=== PATIENT | female | born 1965 | race Caucasian/White ===

== ENCOUNTER 2021-07-06 15:00 | Outpatient (REF) | payer OTHER, SELFPAY ==
[2021-07-06 18:43] LABS: MANUAL DIFF FLAG NO
[2021-07-06 18:45] LABS: Basophils Absolute Auto 0.1 X10*3/uL (0.0-0.2); Basophils Percent Auto 0.7 % (0-2); Eosinophils Absolute Auto 0.1 X10*3/uL (0.0-0.4); Eosinophils Percent Auto 1.4 % (0-4); Hematocrit 42.4 % (37-47); Hemoglobin 14.2 g/dl (12.0-16.0); Imm Gran Abs Auto 0.02 X10*3/uL (0.00-0.03); Imm Gran Pct Auto 0.3 % (0.0-0.4); Lymphocytes Absolute Auto 1.6 X10*3/uL (1.2-4.9); Lymphocytes Percent Auto 22.1 % (20-40); Mean Corpuscular HGB Conc 33.5 g/dl (31.0-35.0); Mean Corpuscular Hemoglobin 29.2 pg (27.0-33.0); Mean Corpuscular Volume 87.2 fL (80-98); Mean Platelet Volume 11.7 fL (9.4-12.3); Monocytes Absolute Auto 0.6 X10*3/uL (0.1-1.2); Monocytes Percent Auto 7.7 % (2-11); Neutrophils Absolute Auto 4.8 X10*3/uL (2.0-8.3); Neutrophils Percent Auto 67.8 % (45-73); Platelet Count 278 X10*3/uL (160-400); Red Blood Count 4.86 X10*6/uL (4.20-5.50); Red Cell Distribution Width 12.8 % (11.0-16.0); White Blood Count 7.1 X10*3/uL (4.8-10.8)
[2021-07-06 19:04] LABS: Alanine Aminotransferase 23 U/L (0-31); Albumin Level 4.5 g/dL (3.5-5.0); Alkaline Phosphatase 85 U/L (39-117); Anion Gap 14 (12-20); Aspartate Amino Transferase 19 U/L (5-31); Bilirubin Total 0.6 mg/dL (0.0-1.0); Blood Urea Nitrogen 18 mg/dL (9-16); Calcium 9.9 mg/dL (8.4-10.2); Carbon Dioxide 25 mmol/L (22-29); Chloride 107 mmol/L (96-108); Cholesterol 147 mg/dL; Estimated Glomerular Filt Rate > 60; Glucose Random 86 mg/dL (60-115); HDL Cholesterol 41 mg/dL; LDL Cholesterol Calculated 65 mg/dl; Potassium 4.4 mmol/L (3.3-5.1); Sodium 142 mmol/L (135-145); Total Protein 7.5 g/dL (6.5-8.0); Triglycerides 208 mg/dL
[2021-07-06 19:24] LABS: Free T4 (Free Thyroxine) 1.05 ng/dL (0.71-1.85); Thyroid Stimulating Hormone 0.12 uIU/mL (0.32-4.0)
== END 2021-07-06 15:01 | disposition home or self-care (01) ==
LOC: HO.MANLDS 15:00
PROVIDERS: PCP Physician Assistant; Visit Provider Physician Assistant
DX: Z00.00 Encounter for general adult medical examination without abnormal findings (principal); E03.9 Hypothyroidism, unspecified
CPT/HCPCS: 36415; 80053; 80061; 84439; 84443; 85025

== ENCOUNTER 2022-02-13 15:22 | Outpatient (REF) | payer OTHER, SELFPAY ==
[2022-02-13 20:26] LABS: Free T4 (Free Thyroxine) 1.03 ng/dL (0.71-1.85); Thyroid Stimulating Hormone 0.14 uIU/mL (0.32-4.0)
== END 2022-02-13 15:23 | disposition home or self-care (01) ==
LOC: HO.MANLDS 15:22
PROVIDERS: Visit Provider Physician Assistant
DX: E03.8 Other specified hypothyroidism (principal)
CPT/HCPCS: 36415; 84439; 84443

== ENCOUNTER 2022-07-08 16:10 | Outpatient (REF) | payer OTHER, SELFPAY ==
[2022-07-08 18:26] LABS: MANUAL DIFF FLAG NO
[2022-07-08 18:29] LABS: Basophils Absolute Auto 0.1 X10*3/uL (0.0-0.2); Basophils Percent Auto 0.8 % (0-2); Eosinophils Absolute Auto 0.3 X10*3/uL (0.0-0.4); Hematocrit 39.4 % (37.0-47.0); Hemoglobin 13.3 g/dl (12.0-16.0); Imm Gran Abs Auto 0.02 X10*3/uL (0.00-0.03); Imm Gran Pct Auto 0.3 % (0.0-0.4); Lymphocytes Percent Auto 29.8 % (20-40); Mean Corpuscular HGB Conc 33.8 g/dl (31.0-35.0); Mean Corpuscular Hemoglobin 30.3 pg (27.0-33.0); Mean Corpuscular Volume 89.7 fL (80.0-98.0); Mean Platelet Volume 11.8 fL (9.4-12.3); Monocytes Absolute Auto 0.6 X10*3/uL (0.1-1.2); Monocytes Percent Auto 8.9 % (2-11); Neutrophils Absolute Auto 3.7 x10*3/uL (2.0-8.3); Neutrophils Percent Auto 56.2 % (45-73); Platelet Count 224 X10*3/uL (160-400); Red Blood Count 4.39 X10*6/uL (4.20-5.50); White Blood Count 6.5 X10*3/uL (4.8-10.8)
[2022-07-08 18:49] LABS: Alanine Aminotransferase 22 U/L (0-31); Albumin Level 4.3 g/dL (3.5-5.0); Alkaline Phosphatase 80 U/L (39-117); Anion Gap 14 (12-20); Aspartate Amino Transferase 18 U/L (5-31); Bilirubin Total 0.4 mg/dL (0.0-1.0); Blood Urea Nitrogen 16 mg/dL (9-16); Calcium 9.7 mg/dL (8.4-10.2); Carbon Dioxide 27 mmol/L (22-29); Chloride 106 mmol/L (96-108); Cholesterol 156 mg/dL; Estimated Glomerular Filt Rate > 60; Glucose Random 82 mg/dL (60-115); HDL Cholesterol 43 mg/dL; LDL Cholesterol Calculated 68 mg/dl; Potassium 4.9 mmol/L (3.3-5.1); Sodium 142 mmol/L (135-145); Total Protein 7.3 g/dL (6.5-8.0); Triglycerides 229 mg/dL
[2022-07-08 19:11] LABS: Free T4 (Free Thyroxine) 0.91 ng/dL (0.71-1.85); Thyroid Stimulating Hormone 2.13 uIU/mL (0.32-4.0); Vitamin D 25-OH Total 27.2 ng/mL (>30)
[2022-07-09 04:42] LABS: HIV AB/AG Nonreactive (Nonreactive); HIV Num 1 0.05 S/CO (0.00-0.99)
[2022-07-09 05:13] LABS: Estimated Average Glucose 105 mg/dL; Hemoglobin A1c % 5.3 %
== END 2022-07-08 16:11 | disposition home or self-care (01) ==
LOC: HO.MANLDS 16:10
PROVIDERS: Visit Provider Physician Assistant
DX: Z00.00 Encounter for general adult medical examination without abnormal findings (principal); Z11.4 Encounter for screening for human immunodeficiency virus [HIV]
CPT/HCPCS: 36415; 80053; 80061; 82306; 83036; 84439; 84443; 85025; 87389

== ENCOUNTER 2022-11-27 10:08 | Outpatient (REF) | payer SELFPAY | END 2022-11-27 10:09 | disposition home or self-care (01) | LOC: HO.MANLDS 10:08 | PROVIDERS: Visit Provider Physician Assistant | DX: Z13.89 Encounter for screening for other disorder (principal) ==

== ENCOUNTER 2025-05-20 15:24 | Outpatient (REF) | payer OTHER, SELFPAY ==
--- OUTSIDE RECORDS SUMMARY | 2025-05-20 15:30 | XMS_ITS | Encounter Summary ---
Author Organization [facility] Address [address] [place] [address] Phone Care Team Providers Care Clinical Molecular Geneticist Name Role Phone Tiago Lee DO Primary Care Provider [phone] Tiago Lee DO Primary Care Provider Jesus, Tiago Dennis DO Unavailable Encounter Details Date Type Department Care Team (Late st Contact Info) Description 05/16/2020 Procedure Pass [facility], [address] [id number] Social History Tobacco Use Types Packs/Day Years Used Date Smoking Tobacco: Never Smokeless Tobacco: Never Alcohol Use Standard Drinks/Week Comments Yes 0 (1 standard drink = 0.6 oz pur e alcohol) occasional Comments No Sex and Gender Information Value Date Recorded Sex Assigned at Female 09/22/2017 9:35 AM EST Legal Sex Female 4:09 PM EST Gender Identity Female 09/22/2017 9:35 AM EST Sexual Orientation Choose not to disclose 2022 11:46 AM EST documented as of this encounter Plan of Treatment Not on file documented as of this encounter Visit Diagnoses Not on filedocumented in this encounter Additional Health Concerns Infection Onset Date Last Indicated Resolved Time COVID-19 09/13/2021 09/13/2021 10/04/2021 1:22 AM EST documented as of this encounter Care Teams Clinical Molecular Geneticist Relationship Specialty Start Date End Date Tiago Lee DO PCP - General 07/03/17 08/10/20 Tiago Lee DO PCP - General Internal Medicine 08/11/20 Tiago Lee DO [address] [place] [phone] Insurance Assigned Provider 12/28/22 02/01/23 documented as of this encounter Additional Source Comments The information contained in this document represents components of the legal health record. It is not the complete legal health record.[facility]
--- OUTSIDE RECORDS SUMMARY | 2025-05-20 15:30 | XMS_ITS | Encounter Summary ---
Author Organization [facility] Address [address] [place] [address] Phone Care Team Providers Care Germination Testing Manager Name Role Phone Tiago Lee DO Primary Care Provider [phone] Tiago Lee DO Unavailable Encounter Details Date Type Department Care Team (Late st Contact Info) Description 08/30/2020 Procedure Pass [facility], [address] [address] Social History Tobacco Use Types Packs/Day Years [...] documented as of this encounter Care Teams Germination Testing Manager Relationship Specialty Start Date End Date Tiago Lee DO [email or web address] PCP - General Internal Medicine 08/11/20 Tiago Lee DO [address] [place] [address] [email or web address] Insurance Assigned Provider 12/28/22 02/01/23 documented as of this encounter Additional Source Comments The information contained in this document represents components of the legal health record. It is not the complete legal health record.[facility]
--- OUTSIDE RECORDS SUMMARY | 2025-05-20 15:30 | XMS_ITS | Encounter Summary ---
Author Organization [facility] Address [address] [place] [address] Phone Care Team Providers Care Special Education Para Professional Name Role Phone Tiago Lee DO Primary Care Provider [phone] Tiago Lee DO Unavailable Encounter Details Date Type Department Care Team (Late st Contact Info) Description 08/11/2020 Ancillary Orders Virtual Department [address] [place] [address] Tiago Lee DO [address] [facility] [place] [address] [email or web address] Social History Tobacco Use Types Packs/Day Years [...] documented as of this encounter Care Teams Special Education Para Professional Relationship Specialty Start Date End Date Tiago Lee DO [email or web address] PCP - General Internal Medicine 08/11/20 Tiago Lee DO [address] [place] [address] [email or web address] Insurance Assigned Provider 12/28/22 02/01/23 documented as of this encounter Additional Source Comments The information contained in this document represents components of the legal health record. It is not the complete legal health record.[facility]
--- OUTSIDE RECORDS SUMMARY | 2025-05-20 15:30 | XMS_ITS | Encounter Summary ---
Author Organization [facility] Address [address] [place] [address] Phone Care Team Providers Care Sock Lining Examiner Name Role Phone Tiago Lee DO Primary Care Provider [phone] Tiago Lee DO Unavailable Encounter Details Date Type Department Care Team (Late st Contact Info) Description 06/11/2021 Procedure Pass [facility], [address] [address] Social History Tobacco Use Types Packs/Day Years Used Date Smoking Tobacco: Never Smokeless Tobacco: Never Alcohol Use Standard Drinks/Week Comments Not Currently 0 (1 standard drink = 0.6 oz pur e alcohol) Comments No Sex and Gender Information Value [...] documented as of this encounter Care Teams Sock Lining Examiner Relationship Specialty Start Date End Date Tiago Lee DO [email or web address] PCP - General Internal Medicine 08/11/20 Tiago Lee DO [address] [place] [phone] Insurance Assigned Provider 12/28/22 02/01/23 documented as of this encounter Additional Source Comments The information contained in this document represents components of the legal health record. It is not the complete legal health record.[facility]
--- OUTSIDE RECORDS SUMMARY | 2025-05-20 15:31 | XMS_ITS | Encounter Summary ---
Author Organization [facility] Address [address] [place] [address] Phone Care Team Providers Care Burn Crew Member Name Role Phone Bigximena, Tiago Dennis DO Primary Care Provider [phone] Bigda, Tiago A DO Primary Care Provider [phone] Bigda, Tiago A DO Unavailable Encounter Details Date Type Department Care Team (Latest Contact Info) Description 05/01/2018 Transcribe Orders [facility] [address] [place] [address] Reva Tuttle, FELICIA [address]. Luis Fernando. [address] [place] [address] Encounter for general adult medical examination with abnormal findings (Primary Dx) Social History Tobacco Use Types Packs/Day Years Used Date Smoking Tobacco: Never Smokeless Tobacco: Never Alcohol Use Standard Drinks/Week Comments Yes 0 (1 standard drink = 0.6 oz pur e alcohol) occasional Comments Unknown Sex and Gender Information Value Date Recorded Sex Assigned at Female 09/22/2017 9:35 AM EST Legal Sex Female 4:09 PM EST Gender Identity Female 09/22/2017 9:35 AM EST Sexual Orientation Choose not to disclose 2022 11:46 AM EST documented as of this encounter Plan of Treatment Not on file documented as of this encounter Results * Free T4 (05/01/2018 10:47 AM EDT) FREE T4 1.3 0.9 - 1.7 ng/dL [facility] Blood 05/01/2018 10:4 7 AM EDT 05/01/2018 11:25 AM EDT [facility] Parag SYEDStuart LAB BLOOD ORDERABLES Final R esult Performing Organization Address City/[facility]/ZIP Co de Phone Number [address] [address] * TSH (05/01/2018 10:47 AM EDT) [facility] TSH 0.29 0.27 - 4.20 uIU/mL [facility] Blood 05/01/2018 10:4 7 AM EDT 05/01/2018 11:25 AM EDT [facility] Final R esult Performing Organization Address City/[facility]/ZIP Co de Phone Number [address] [address] * (ABNORMAL) Lipid panel (05/01/2018 10:47 AM EDT) [facility] HDL 43 mg/dL [facility] Comment: Interpretation: Risk Level Females Decreased >55mg/dL Average 50-55 mg/dL Increased <50 mg/dL CHOLESTEROL 130 0 - 240 mg/dL [facility] TRIGLYCERIDES 150 30 - 160 mg/dL [facility] LDL 57 50 - 129 mg/dL [facility] Comment: LDL levels in terms of risk for coronary heart disease: <100 mg/dL: Optimal 100-129 mg/dL: Near or above optimal 130-159 mg/dL: Borderline high 160-189 mg/dL: High >190 mg/dL: Very High CARDIAC RISK RATIO 3.0(L) 3.3 - 4.4 C [facility] Blood 05/01/2018 10:4 7 AM EDT 05/01/2018 11:25 AM EDT us Reva Parag DUARTE LAB BLOOD ORDERABLES Final R esult [facility] [address] [place] [address] * CBC and differential (05/01/2018 10:47 AM EDT) WBC 5.66 3.40 - 11.20 K/uL [facility] RBC 4.75 3.80 - 4.80 M/uL [facility] HGB 13.9 12.0 - 15.0 g/dL [facility] HCT 41.4 36.0 - 46.0 % [facility] PLT 230 130 - 400 K/uL [facility] MCV 87.2 79.0 - 98.0 fL [facility] MCH 29.3 27.0 - 34.8 pg [facility] MCHC 33.6 31.5 - 36.0 g/dL [facility] RDW 13.0 10.8 - 14.6 % [facility] MPV 11.8 9.4 - 12.4 fl [facility] NRBC 0.00 /100 WBCs [facility] ABSOLUTE NRBC 0.00 K/uL [facility] DIFF METHOD Auto [facility] NEUTS 63.5 45.30 - 77.70 % [facility] LYMPHS 26.1 12.30 - 39.70 % [facility] MONOS 8.5 4.10 - 12.80 % [facility] EOS 1.2 0 - 7.2 % [facility] BASOS 0.5 0 - 2.80 % [facility] Granulocytes, immature (%) 0.2 0.0 - 0.9 % [facility] ABSOLUTE NEUTS 3.59 1.40 - 7.70 K/uL [facility] ABSOLUTE LYMPHS 1.48 0.60 - 3.20 K/uL [facility] ABSOLUTE MONOS 0.48 0.11 - 0.59 K/uL [facility] ABSOLUTE EOS 0.07 0.01 - 0.50 K/uL [facility] ABSOLUTE BASOS 0.03 0.00 - 0.08 K/uL [facility] Granulocytes, immature 0.01 0.00 - 0.05 K/uL [facility] Blood 05/01/2018 10:4 7 AM EDT 05/01/2018 11:25 AM EDT December Parag DUARTE LAB BLOOD ORDERABLES Final R esult [address] [address] * Comprehensive metabolic panel (05/01/2018 10:47 AM EDT) SODIUM 142 133 - 146 mmol/L [facility] POTASSIUM 4.3 3.3 - 5.1 mmol/L [facility] CHLORIDE 106 96 - 108 mmol/L [facility] CO2 24 21 - 35 mmol/L [facility] BUN 19 6 - 19 mg/dL [facility] CREATININE 0.70 0.5 - 1.5 mg/dL [facility] GLUCOSE 85 70 - 99 mg/dL [facility] ALBUMIN 3.9 3.9 - 4.8 g/dL [facility] TOTAL PROTEIN 7.1 6.5 - 8.0 g/dL [facility] CALCIUM 8.9 8.4 - 10.3 mg/dL [facility] ALKALINE PHOSPHATASE 77 39 - 117 U/L [facility] TOTAL BILIRUBIN 0.8 0.0 - 1.2 mg/dL [facility] AST 28 0 - 37 U/L [facility] ALT 18 0 - 40 U/L [facility] GLOBULIN 3.2 1 - 4.8 g/dL [facility] EGFR 99 >59 mL/min/1.7 3m2 [facility] Comment:If patient is black, multiply result by 1.159. Estimated glomerular filtration rate calculated using the CKD-EPI equation. ANION GAP 16 10 - 20 mmol/L [facility] Blood 05/01/2018 10:4 7 AM EDT 05/01/2018 11:25 AM EDT December Parag DUARTE LAB BLOOD ORDERABLES Final R esult Performing Organization Address City/[facility]/ZIP Co de Phone Number [address] [address] * Hepatitis C antibody, qualitative (05/01/2018 10:47 AM EDT) HCV Negative Negative [facility] Comment: This is a screening test and should be confirmed with molecular testing Blood 05/01/2018 10:4 7 AM EDT 05/01/2018 11:25 AM EDT December Parag DUARTE LAB BLOOD ORDERABLES Final R esult [facility] [address] [place] [address] documented in this encounter Visit Diagnoses Diagnosis Encounter for general adult medical examination with abnormal findings- Primary documented in this encounter Additional Health Concerns Infection Onset Date Last Indicated Resolved Time COVID-19 09/13/2021 09/13/2021 10/04/2021 1:22 AM EST documented as of this encounter Care Teams Burn Crew Member Relationship Specialty Start Date End Date Tiago Lee DO PCP - General 07/03/17 08/10/20 Tiago Lee DO PCP - General Internal Medicine 08/11/20 Tiago Lee DO [address] [place] [id number] Insurance Assigned Provider 12/28/22 02/01/23 documented as of this encounter Additional Source Comments The information contained in this document represents components of the legal health record. It is not the complete legal health record.[facility]
--- OUTSIDE RECORDS SUMMARY | 2025-05-20 15:31 | XMS_ITS | Encounter Summary ---
Author Organization [facility] Address [address] [place] [address] Phone Care Team Providers Care Mental Health Therapist Name Role Phone Tiago Lee Primary Care Provider [phone] Encounter Details Date Type Department Care Team (Late st Contact Info) Description 04/16/2024 Procedure Pass [facility], [address] [address] Social History Tobacco Use Types Packs/Day Years Used Date Smoking Tobacco: Never Smokeless Tobacco: Never Alcohol Use Standard Drinks/Week Comments Not Currently 0 (1 standard drink = 0.6 oz pur e alcohol) Education Answer Date Recorded Are you interested in more education? Not on tommy e 01/09/2023 Are you concerned about learning? Not on file 01/09/2023 No 01/09/2023 No 01/09/2023 Digital Access Answer Date Recorded No 02/10/2023 No 02/10/2023 Reliable internet access at home? Not on file 02/10/2023 Device with a working camera? Not on file Comments No Sex and Gender Information Value [...] Diagnoses Not on filedocumented in this encounter Care Teams Mental Health Therapist Relationship Specialty Start Date End Date Tiago Lee DO [email or web address] PCP - General Internal Medicine 08/11/20 documented as of this encounter Additional Source Comments The information contained in this document represents components of the legal health record. It is not the complete legal health record.[facility]
--- OUTSIDE RECORDS SUMMARY | 2025-05-20 15:31 | XMS_ITS | Encounter Summary ---
Author Organization [facility] Address [address] [place] [address] Phone Care Team Providers Care Plastic Outfitter Name Role Phone Tiago Lee DO Primary Care Provider [phone] Bigda, Tiago A DO Primary Care Provider [phone] Bigda, Tiago A DO Unavailable Encounter Details Date Type Department Care Team (Late st Contact Info) Description 05/01/2020 Ancillary Orders Virtual Department [address] [place] [address] Alyse Quevedo, VENETIAN BLIND WASHER [address] [place] [phone] 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 Narrative 05/02/2020 1:23 PM EDT HISTORY: As above. COMPARISON: None. CERVICAL SPINE RADIOGRAPH FINDINGS: 6 views obtained. Lower cervical reversal of lordosis. No fracture. No malalignment. Moderate disc space narrowing at C4-5 through C6-7 with endplate osteophytes. Multilevel mild facet arthropathy. Mild right C4-5 to C6-7 neural foraminal stenosis and moderate left C4-5 and C5-6 and severe C6-7 neural foraminal stenosis. No cervical ribs. No destructive or suspicious bone lesions. Soft tissues are normal. Imaged lung apices are clear. Procedure Note Matt Hernandez MD - 05/02/2020 HISTORY: As above. COMPARISON: None. CERVICAL SPINE RADIOGRAPH FINDINGS: 6 views obtained. Lower cervical reversal of lordosis. No fracture. No malalignment.Moderate disc space narrowing at C4-5 through C6-7 with endplateosteophytes. Multilevel mild facet arthropathy. Mild right C4-5 to C6-7neural foraminal stenosis and moderate left C4-5 and C5-6 and severe C6-7neural foraminal stenosis. No cervical ribs. No destructive or suspiciousbone lesions. Soft tissues are normal. Imaged lung apices are clear. IMPRESSION: Multilevel disc disease and bilateral neural foraminal stenosis asabove. Alyse Quevedo VENETIAN BLIND WASHER IMG XR SPINE Final Result documented in this encounter Visit Diagnoses Diagnosis Spondylosis of cervical spine Cervical radiculopathy Brachial neuritis or radiculitis nos Neck pain Cervicalgia Spondylosis of cervical spine Cervical radiculopathy Brachial neuritis or radiculitis nos Neck pain Cervicalgia documented in this encounter Additional Health Concerns Infection Onset Date Last Indicated Resolved Time COVID-19 09/13/2021 09/13/2021 10/04/2021 1:22 AM EST documented as of this encounter Care Teams Plastic Outfitter Relationship Specialty Start Date End Date Tiago Lee DO [email or web address] PCP - General 07/03/17 08/10/20 Tiago Lee DO [email or web address] PCP - General Internal Medicine 08/11/20 Tiago Lee DO [address] [place] [id number] [email or web address] Insurance Assigned Provider 12/28/22 02/01/23 documented as of this encounter Additional Source Comments The information contained in this document represents components of the legal health record. It is not the complete legal health record.[facility]
--- OUTSIDE RECORDS SUMMARY | 2025-05-20 15:31 | XMS_ITS | Encounter Summary ---
Author Organization [facility] Address [address] [place] [address] Phone Care Team Providers Care Hand Lacer Name Role Phone DarciTiago bueno Primary Care Provider [phone] Reason for Referral * MRI/CAT Scan - Closed Specialty Diagnoses / Procedures Referred By Marquis pillai Referred To Contact Radiology Diagnoses Memory loss Ataxia White matter disease Procedures MRI Brain CHG MRI BRAIN Mervin Pritchard MD [address] [place] [address], [address] [place] [address] Phone: tel: fax: [email or web address] Referral ID Status Reason Start Date Expiration Date Visits Re quested Visits Authorized [id number] Closed 04/16/2024 06/15/2024 1 1 Encounter Details Date Type Department Care Team (Latest Contact Info) Description 04/16/2024 Transcribe Orders Virtual Department [address] [place] [address] Mervin Pritchard MD [address] [place] [address], [address] [place], [place] [phone] [email or web address] Memory loss (Primary Dx); Ataxia; White matter disease Social History Tobacco Use Types Packs/Day Years [...] documented as of this encounter Results * MRI BRAIN (MS) WITHOUT CONTRAST (06/03/2024 6:43 PM EDT) Anatomical Region Laterality Modality Head Magnetic Resonan ce 06/04/2024 8:17 AM EDT Impressions 06/04/2024 8:29 AM EDT 1. Non-specific pattern of T2 FLAIR hyperintense white matter lesions may represent demyelinating disease versus other etiologies such as chronic small vessel disease. No interval change from September 14, 2022. 2. No regional brain parenchymal volume loss. Narrative 06/04/2024 8:29 AM EDT MRI BRAIN (MS) WITHOUT CONTRAST Referring clinician's provided indication for this examination in Epic: Outside Radiology Order; memory loss TECHNIQUE: MRI BRAIN (MS) WITHOUT CONTRAST Multi-sequence, multi-planar MRI of the brain was performed without intravenous contrast. COMPARISON: MRI brain September 14, 2022 FINDINGS: Brain Parenchyma: There are a few small nonspecific foci of hyperintense signal on T2-weighted images within the white matter similar to September 14, 2022. No cortical or large lacunar infarct. No evidence of chronic microhemorrhage or superficial siderosis. No mass lesion. Brain Volume: Normal. Ventricular System and Extra-Axial Spaces: Normal. No evidence of midline shift or hydrocephalus. Extracranial Structures: Expected arterial flow signal is observed at the skull base. There is mucosal thickening and fluid signal within the left maxillary sinus and mucosal thickening within the anterior ethmoids similar the prior study. There is a tiny amount of mucosal thickening within left sphenoid sinus. Procedure Note Riki Montgomery DO - 06/04/2024 MRI BRAIN (MS) WITHOUT CONTRAST Referring clinician's provided indication for this examination in [facility]:Outside Radiology Order; memory loss TECHNIQUE: MRI BRAIN (MS) WITHOUT CONTRAST Multi-sequence, multi-planar MRI of the brain was performed withoutintravenous contrast. COMPARISON: MRI brain September 14, 2022 FINDINGS: Brain Parenchyma: There are a few small nonspecific foci of hyperintensesignal on T2-weighted images within the white matter similar to 2021. No cortical or large lacunar infarct. No evidence of chronicmicrohemorrhage or superficial siderosis. No mass lesion. Brain Volume: Normal. Ventricular System and Extra-Axial Spaces: Normal. No evidence of midlineshift or hydrocephalus. Extracranial Structures: Expected arterial flow signal is observed at theskull base. There is mucosal thickening and fluid signal within the leftmaxillary sinus and mucosal thickening within the anterior ethmoidssimilar the prior study. There is a tiny amount of mucosal thickeningwithin left sphenoid sinus. IMPRESSION: 1. Non-specific pattern of T2 FLAIR hyperintense white matter lesions mayrepresent demyelinating disease versus other etiologies such as chronicsmall vessel disease. No interval change from September 14, 2022. 2. No regional brain parenchymal volume loss. Mervin Pritchard MD IMG MR HEAD/NECK Final Resul t documented in this encounter Visit Diagnoses Diagnosis Memory loss- Primary Ataxia Lack of coordination White matter disease Memory loss Ataxia Lack of coordination White matter disease documented in this encounter Care Teams Hand Lacer Relationship Specialty Start Date End Date Tiago Lee DO [email or web address] PCP - General Internal Medicine 08/11/20 documented as of this encounter Additional Source Comments The information contained in this document represents components of the legal health record. It is not the complete legal health record.[facility]
--- OUTSIDE RECORDS SUMMARY | 2025-05-20 15:31 | XMS_ITS | Encounter Summary ---
Author Organization [facility] Address [address] [place] [address] Phone Care Team Providers Care Wet End Supervisor Name Role Phone Tiago Lee DO Primary Care Provider [phone] Tiago Lee DO Unavailable Encounter Details Date Type Department Care Team (Late st Contact Info) Description 06/13/2022 Transcribe Orders Virtual Department [address] [place] [address] Tiago Lee DO [address] [facility] [address] [place], [place] [id number] [email or web address] Breast screening (Primary Dx) Social History Tobacco Use Types [...] documented as of this encounter Results * BI MAMMOGRAM SCREENING WITH TOMOSYNTHESIS WITH CAD (BILATERAL) (09/12/2022 12:00 PM EST) Anatomical Region Laterality Modality Breast Left, Breast Right, Breast Bilateral Bila teral Mammography 09/12/2022 1:50 PM EST Impressions 09/12/2022 1:53 PM EST No findings suspicious for malignancy are identified. In the absence of a worrisome palpable abnormality, annual screening mammography is recommended. BI-RADS CATEGORY: 1 - Negative. DENSITY: There are scattered fibroglandular densities. Narrative 09/12/2022 1:53 PM EST COMPARISON: 09/11/2021 through 11/26/2000 Bilateral 3-D tomosynthesis with 2-D reconstructions in the CC and MLO projection. Computer-aided detection system was utilized. No new mass, asymmetry, architectural distortion or suspicious calcifications have become apparent on either side. Procedure Note Mario Marquez MD - 09/12/2022 COMPARISON: 09/11/2021 through 11/26/2000 Bilateral 3-D tomosynthesis with 2-D reconstructions in the CC and MLOprojection. Computer-aided detection system was utilized. No new mass, asymmetry, architectural distortion or suspiciouscalcifications have become apparent on either side. IMPRESSION: No findings suspicious for malignancy are identified. In the absence of aworrisome palpable abnormality, annual screening mammography isrecommended. BI-RADS CATEGORY: 1 - Negative. DENSITY: There are scattered fibroglandular densities. Tiago Lee DO IMG MG EXAMS Final Result documented in this encounter Visit Diagnoses Diagnosis Breast screening- Primary Breast screening, unspecified Breast screening Breast screening, unspecified documented in this encounter Care Teams Wet End Supervisor Relationship Specialty Start Date End Date Tiago Lee DO PCP - General Internal Medicine 08/11/20 Tiago Lee DO [address] [place] [address] [email or web address] Insurance Assigned Provider 12/28/22 02/01/23 documented as of this encounter Additional Source Comments The information contained in this document represents components of the legal health record. It is not the complete legal health record.[facility]
--- OUTSIDE RECORDS SUMMARY | 2025-05-20 15:31 | XMS_ITS | Encounter Summary ---
Author Organization [facility] Address [address] [place] [address] Phone Care Team Providers Care Circuit Clerk Name Role Phone Tiago Lee Primary Care Provider [phone] Encounter Details Date Type Department Care Team (Late st Contact Info) Description 06/20/2023 Procedure Pass [facility], [address] [address] Social History Tobacco Use Types Packs/Day Years [...] on filedocumented in this encounter Care Teams Circuit Clerk Relationship Specialty Start Date End Date Tiago Lee DO [email or web address] PCP - General Internal Medicine 08/11/20 documented as of this encounter Additional Source Comments The information contained in this document represents components of the legal health record. It is not the complete legal health record.[facility]
--- OUTSIDE RECORDS SUMMARY | 2025-05-20 15:31 | XMS_ITS | Encounter Summary ---
Author Organization [facility] Address [address] [place] [address] Phone Care Team Providers Care Principal Clerk Name Role Phone Tiago Lee DO Primary Care Provider [phone] Bigda, Tiago A DO Primary Care Provider [phone] Bigda, Tiago A DO Unavailable Encounter Details Date Type Department Care Team (Latest Contact Info) Description 05/01/2020 Ancillary Orders Virtual Department [address] [place] [address] Alyse Quevedo, JAMAR [address] [place] [phone] [email or web address] Spondylosis of lumbosacral region, unspecified spinal osteoarthritis complication status; Cervical radiculopathy; Neck pain Social History Tobacco [...] documented as of this encounter Visit Diagnoses Diagnosis Spondylosis of lumbosacral region, unspecified spinal osteoarthritis complication status Cervical radiculopathy Brachial neuritis or radiculitis nos Neck pain Cervicalgia documented in this encounter Additional Health Concerns Infection Onset Date Last Indicated Resolved Time COVID-19 09/13/2021 09/13/2021 10/04/2021 1:22 AM EST documented as of this encounter Care Teams Principal Clerk Relationship Specialty Start Date End Date Tiago Lee DO PCP - General 07/03/17 08/10/20 Tiago Lee DO PCP - General Internal Medicine 08/11/20 Tiago Lee DO [address] [place] [phone] Insurance Assigned Provider 12/28/22 02/01/23 documented as of this encounter Additional Source Comments The information contained in this document represents components of the legal health record. It is not the complete legal health record.[facility]
--- OUTSIDE RECORDS SUMMARY | 2025-05-20 15:31 | XMS_ITS | Encounter Summary ---
Author Organization [facility] Address [address] [place] [address] Phone Care Team Providers Care Metallurgy Laboratory Technician Name Role Phone Tiago Lee DO Primary Care Provider [phone] Tiago Lee DO Unavailable Encounter Details Date Type Department Care Team (Late st Contact Info) Description 08/07/2022 Procedure Pass [facility], [address] [address] Social History Tobacco Use Types Packs/Day Years [...] on filedocumented in this encounter Care Teams Metallurgy Laboratory Technician Relationship Specialty Start Date End Date Tiago Lee DO [email or web address] PCP - General Internal Medicine 08/11/20 Tiago Lee DO [address] [place] [address] [email or web address] Insurance Assigned Provider 12/28/22 02/01/23 documented as of this encounter Additional Source Comments The information contained in this document represents components of the legal health record. It is not the complete legal health record.[facility]
--- OUTSIDE RECORDS SUMMARY | 2025-05-20 15:31 | XMS_ITS | Encounter Summary ---
Author Organization [facility] Address [address] [place] [address] Phone Care Team Providers Care Cook Morning Name Role Phone Jesus, Tiago Dennis DO Primary Care Provider [phone] Bigda, Tiago A DO Primary Care Provider [phone] Bigda, Tiago A DO Unavailable Encounter Details Date Type Department Care Team (Late st Contact Info) Description 04/20/2020 Ancillary Orders Virtual Department [address] [place] [address] Alyse Quevedo, DISTRICT GAUGER [address] [place] [phone] [email or web address] Bilateral low back pain with sciatica, sciatica laterality unspecified, unspecified chronicity Social History Tobacco Use Types Packs/Day Years [...] as of this encounter Results * XR LUMBOSACRAL SPINE 4 OR MORE VIEWS (04/28/2020 1:23 PM EDT) Anatomical Region Laterality Modality L-spine Computed Radiogr aphy 04/28/2020 3:07 PM EDT Impressions 04/28/2020 3:09 PM EDT Minimal endplate spondylosis. Otherwise unremarkable plain film appearance of the lumbosacral spine POS [id number] Narrative 04/28/2020 3:09 PM EDT 6 views. No comparison Well aligned vertebral bodies. Slight narrowing of the L5-S1 disc is probably developmental. The other disc heights are well-maintained Minimal anterior endplate spurring from L1 through L4. No compression fracture, spondylolysis or other bony injury No evidence of metastatic disease Procedure Note Mario Marquez MD - 04/28/2020 6 views. No comparison Well aligned vertebral bodies. Slight narrowing of the L5-S1 disc is probably developmental. The otherdisc heights are well-maintained Minimal anterior endplate spurring from L1 through L4. No compression fracture, spondylolysis or other bony injury No evidence of metastatic disease IMPRESSION: Minimal endplate spondylosis. Otherwise unremarkable plain film appearanceof the lumbosacral spine POS [id number] Alyse Quevedo NP IMG XR SPINE Final Result documented in this encounter Visit Diagnoses Diagnosis Bilateral low back pain with sciatica, sciatica laterality unspecified, unspecified chronicity Bilateral low back pain with sciatica, sciatica laterality unspecified, unspecified chronicity documented in this encounter Additional Health Concerns Infection Onset Date Last Indicated Resolved Time COVID-19 09/13/2021 09/13/2021 10/04/2021 1:22 AM EST documented as of this encounter Care Teams Cook Morning Relationship Specialty Start Date End Date Tiago Lee DO PCP - General 07/03/17 08/10/20 Tiago Lee DO [email or web address] PCP - General Internal Medicine 08/11/20 Tiago Lee DO [address] [place] [address] [email or web address] Insurance Assigned Provider 12/28/22 02/01/23 documented as of this encounter Additional Source Comments The information contained in this document represents components of the legal health record. It is not the complete legal health record.[facility]
--- OUTSIDE RECORDS SUMMARY | 2025-05-20 15:31 | XMS_ITS | Encounter Summary ---
Author Organization [facility] Address [address] [place] [address] Phone Care Team Providers Care English Composition Instructor Name Role Phone DarciTiago bueno Primary Care Provider [phone] DarciTiago bueno Unavailable Encounter Details Date Type Department Care Team (Late st Contact Info) Description 05/03/2021 Ancillary Orders Virtual Department [address] [place] [address] Alyse Quevedo, JAMAR [address] [place] [phone] [email or web address] Joint pain of ankle and foot, right Social History Tobacco Use Types Packs/Day Years [...] as of this encounter Results * XR FOOT 3 OR MORE VIEWS (BILATERAL) (05/07/2021 11:40 AM EDT) Anatomical Region Laterality Modality Foot Left Computed Radiogr aphy 05/07/2021 1:46 PM EDT Impressions 05/07/2021 1:50 PM EDT Bilateral hallux valgus. Mild degenerative changes at the first MTP joints. Narrative 05/07/2021 1:50 PM EDT XR FOOT 3 OR MORE VIEWS (BILATERAL) COMPARISON: None. FINDINGS: 3 views. Left foot: Moderate hallux valgus and associated bunion. Mild marginal spurring and joint space narrowing at the first MTP joint.. No evidence of erosions. No fractures, subluxations or dislocations suspicious soft tissue calcifications. Right foot: Moderate hallux valgus and associated bunion. Minimal marginal spurring and joint space narrowing at the first MTP joint.. No evidence of erosions. No fractures, subluxations or dislocations suspicious soft tissue calcifications. Procedure Note Andrea Martinez MD - 05/07/2021 XR FOOT 3 OR MORE VIEWS (BILATERAL) COMPARISON: None. FINDINGS: 3 views. Left foot: Moderate hallux valgus and associated bunion. Mild marginalspurring and joint space narrowing at the first MTP joint.. No evidence oferosions. No fractures, subluxations or dislocations suspicious softtissue calcifications. Right foot: Moderate hallux valgus and associated bunion. Minimal marginalspurring and joint space narrowing at the first MTP joint.. No evidence oferosions. No fractures, subluxations or dislocations suspicious softtissue calcifications. IMPRESSION: Bilateral hallux valgus. Mild degenerative changes at the first MTPjoints. us Alyse Quevedo SHAKE LOADER IMG XR LOWER EXTREMITY Final Res ult documented in this encounter Visit Diagnoses Diagnosis Joint pain of ankle and foot, right Joint pain of ankle and foot, right documented in this encounter Additional Health Concerns Infection Onset Date Last Indicated Resolved Time COVID-19 09/13/2021 09/13/2021 10/04/2021 1:22 AM EST documented as of this encounter Care Teams English Composition Instructor Relationship Specialty Start Date End Date Tiago Lee DO [email or web address] PCP - General Internal Medicine 08/11/20 Tiago Lee DO [address] [place] [address] [email or web address] Insurance Assigned Provider 12/28/22 02/01/23 documented as of this encounter Additional Source Comments The information contained in this document represents components of the legal health record. It is not the complete legal health record.[facility]
--- OUTSIDE RECORDS SUMMARY | 2025-05-20 15:31 | XMS_ITS | Encounter Summary ---
Author Organization [facility] Address [address] [place] [address] Phone Care Team Providers Care Repairer Controller Tester Name Role Phone Tiago Lee DO Primary Care Provider [phone] Tiago Lee DO Unavailable Encounter Details Date Type Department Care Team (Late st Contact Info) Description 06/13/2022 Procedure Pass [facility] [address] [place] [address] Social History Tobacco Use Types Packs/Day Years [...] on filedocumented in this encounter Care Teams Repairer Controller Tester Relationship Specialty Start Date End Date Tiago Lee DO [email or web address] PCP - General Internal Medicine 08/11/20 Tiago Lee DO [address] [place] [address] [email or web address] Insurance Assigned Provider 12/28/22 02/01/23 documented as of this encounter Additional Source Comments The information contained in this document represents components of the legal health record. It is not the complete legal health record.[facility]
--- OUTSIDE RECORDS SUMMARY | 2025-05-20 15:31 | XMS_ITS | Encounter Summary ---
Author Organization [facility] Address [address] [place] [address] Phone Care Team Providers Care Behavioral Sciences Instructor Name Role Phone DarciTiago bueno Primary Care Provider [phone] Jesus Tiago Dennis Unavailable Encounter Details Date Type Department Care Team (Late st Contact Info) Description 03/23/2021 Ancillary Orders Virtual Department [address] [place] [address] Alyse Quevedo NP [address] [place] [phone] [email or web address] Foot pain, right Social History Tobacco Use Types Packs/Day [...] as of this encounter Visit Diagnoses Diagnosis Foot pain, right Pain in soft tissues of limb documented in this encounter Additional Health Concerns Infection Onset Date Last Indicated Resolved Time COVID-19 09/13/2021 09/13/2021 10/04/2021 1:22 AM EST documented as of this encounter Care Teams Behavioral Sciences Instructor Relationship Specialty Start Date End Date Tiago Lee DO [email or web address] PCP - General Internal Medicine 08/11/20 Tiago Lee DO [address] [place] [address] [email or web address] Insurance Assigned Provider 12/28/22 02/01/23 documented as of this encounter Additional Source Comments The information contained in this document represents components of the legal health record. It is not the complete legal health record.[facility]
--- OUTSIDE RECORDS SUMMARY | 2025-05-20 15:31 | XMS_ITS | Encounter Summary ---
Author Organization [facility] Address [address] [place] [address] Phone Care Team Providers Care Document Control Associate Name Role Phone Tiago Lee DO Primary Care Provider [phone] Tiago Lee DO Unavailable Reason for Referral * MRI/CAT Scan - Closed Specialty Diagnoses / Procedures Referred By Marquis pillai Referred To Contact Radiology Diagnoses Lumbar radiculopathy Procedures MRI Lumbar Spine Alyse Quevedo NP Phone: tel: fax: mailto:[email or web address] Referral ID Status Reason Start Date Expiration Date Visits Re quested Visits Authorized [id number] Closed 08/30/2020 02/26/2021 1 1 Encounter Details Date Type Department Care Team (Latest Contact Info) Description 08/30/2020 Ancillary Orders Virtual Department [address] [place] [address] Alyse Quevedo NP [address] [place] [phone] [email or web address] Social History Tobacco Use Types Packs/Day Years [...] as of this encounter Results * MRI LUMBAR SPINE (NEURO) WITHOUT CONTRAST (09/12/2020 8:11 PM EST) Anatomical Region Laterality Modality L-spine Magnetic Resonan ce 09/13/2020 8:08 AM EST Impressions 09/13/2020 8:30 AM EST Mild/minimal bulging disc at multiple levels, but no disc herniations. No significant canal or neuroforaminal stenosis along the lumbar spine. Narrative 09/13/2020 8:30 AM EST EXAM: MRI LUMBAR SPINE (NEURO) WITHOUT CONTRAST COMPARISON: Radiographs of the lumbar spine on April 28, 2020 HISTORY: Lumbar radiculopathy Study notes from technologist: Pt sts rt sided sciatica since March 2020. Pain going rt leg. TECHNIQUE: Exam performed on a 1.5 Josselin high-field MRI scanner. Magnetic resonance imaging of the lumbar spine was performed WITHOUT injected contrast using standard department protocols. FINDINGS: ALIGNMENT: Anatomic alignment is maintained. No anterior or posterior subluxations. VERTEBRAL BODIES: Vertebral body heights are maintained. Bone marrow signal pattern is within normal limits. INTERVERTEBRAL DISCS: Mild desiccation changes of all lumbar disks. Minimal loss of height of L1-L2 disc. SPINAL CORD/CONUS: Included spinal cord has normal caliber and signal characteristics. The conus terminates normally at L1-L2 level. Level by level analysis yields the following: L1-2: Mild bulging disc. No significant canal or neuroforaminal stenosis. L2-3: No disc herniation. No significant canal or neuroforaminal stenosis. L3-4: Minimal bulging disc. No significant canal or neuroforaminal stenosis. L4-5: No disc herniation. No significant canal or neuroforaminal stenosis. L5-S1: Mild bulging disc. No significant canal or neuroforaminal stenosis. OTHERS: Visualized portions of the retroperitoneal structures are grossly unremarkable. Posterior paraspinal soft tissues are unremarkable. Procedure Note Rober Izquierdo MD - 09/13/2020 EXAM: MRI LUMBAR SPINE (NEURO) WITHOUT CONTRAST COMPARISON: Radiographs of the lumbar spine on April 28, 2020 HISTORY: Lumbar radiculopathy Study notes from technologist: Pt sts rt sided sciatica since March 2020.Pain going rt leg. TECHNIQUE: Exam performed on a 1.5 Josselin high-field MRI scanner. Magneticresonance imaging of the lumbar spine was performed WITHOUT injectedcontrast using standard department protocols. FINDINGS: ALIGNMENT: Anatomic alignment is maintained. No anterior or posteriorsubluxations. VERTEBRAL BODIES: Vertebral body heights are maintained. Bone marrowsignal pattern is within normal limits. INTERVERTEBRAL DISCS: Mild desiccation changes of all lumbar disks.Minimal loss of height of L1-L2 disc. SPINAL CORD/CONUS: Included spinal cord has normal caliber and signalcharacteristics. The conus terminates normally at L1-L2 level. Level by level analysis yields the following: L1-2: Mild bulging disc. No significant canal or neuroforaminalstenosis. L2-3: No disc herniation. No significant canal or neuroforaminalstenosis. L3-4: Minimal bulging disc. No significant canal or neuroforaminalstenosis. L4-5: No disc herniation. No significant canal or neuroforaminalstenosis. L5-S1: Mild bulging disc. No significant canal or neuroforaminalstenosis. OTHERS: Visualized portions of the retroperitoneal structures are grosslyunremarkable. Posterior paraspinal soft tissues are unremarkable. IMPRESSION: Mild/minimal bulging disc at multiple levels, but no disc herniations. Nosignificant canal or neuroforaminal stenosis along the lumbar spine. Alyse Quevedo INTERSTATE BUS DRIVER IMG MR XSPECIALTY Final Result documented in this encounter Visit Diagnoses Diagnosis Lumbar radiculopathy Thoracic or lumbosacral neuritis or radiculitis, unspecified Lumbar radiculopathy Thoracic or lumbosacral neuritis or radiculitis, unspecified documented in this encounter Additional Health Concerns Infection Onset Date Last Indicated Resolved Time COVID-19 09/13/2021 09/13/2021 10/04/2021 1:22 AM EST documented as of this encounter Care Teams Document Control Associate Relationship Specialty Start Date End Date Tiago Lee DO [email or web address] PCP - General Internal Medicine 08/11/20 Tiago Lee DO [address] [place] [phone] [email or web address] Insurance Assigned Provider 12/28/22 02/01/23 documented as of this encounter Additional Source Comments The information contained in this document represents components of the legal health record. It is not the complete legal health record.[facility]
--- OUTSIDE RECORDS SUMMARY | 2025-05-20 15:31 | XMS_ITS | Clinical Summary ---
Author Organization [facility] Address [address] [place] [address] Phone Care Team Providers Care Geophysicist Name Role Phone Tiago Lee DO Primary Care Provider [phone] Allergies No known active allergies Medications levothyroxine (SYNTHROID, LEVOTHROID) 100 MCG tablet Take 100 mcg by mouth every morning. Active albuterol 90 mcg/actuation inhaler Inhale 2 puffs into the lungs every 4 (four) hours as needed for wheezing. 1 Inhaler 8 Active multivitamin per tablet Take by mouth daily. Active traZODone (DESYREL) 50 MG tablet Active EPINEPHrine 0.3 mg/0.3 mL auto-injector epinephrine 0.3 mg/0.3 mL injection, auto-injector inject 0.3 mg IM, may repeat after 15 minutes Active meloxicam (MOBIC) 15 MG tablet Take 1 tablet by mouth every morning. 3 Active GLUCOSAMINE CHONDROITIN 550-30-1 mg Cap Take 1 capsule by mouth every morning. 3 Active Active Problems Problem Noted Date Diagnosed Date Annual physical exam 09/10/2021 Flat foot 06/13/2021 Bunion 06/13/2021 Hammer toes of both feet 06/13/2021 Gastrocnemius equinus of left lower extremity Gastrocnemius equinus, right 06/13/2021 Immunizations Immunization Administration Dates Next Due Tdap 08/10/2018 Family History Medical History Relation Comments HIV Brother Pneumonia Brother Arthritis Father Cancer Father Esophageal cancer Father Hypertension Father Breast cancer Maternal Aunt Dementia Mother Thyroid disease Mother Relation Status Comments Brother Father Alive Maternal Aunt Mother Alive Social History Tobacco Use Types Packs/Day Years [...] with a working camera? Not on file Intimate Partner Violence Answer Date R ecorded Are you denied basic needs s uch as food, clothing, or medical care? No 06/29/2024 In the past 12 months have y ou been in a relationship with a person who hurts, threatens, or tries to control you? No 06/29/2024 Are you denied basic needs s uch as food, clothing, or medical care? No 06/29/2024 In the past 12 months have y ou been in a relationship with a person who hurts, threatens, or tries to control you? No 06/29/2024 Comments No Sex and Gender Information Value Date Recorded Sex Assigned at Female 09/22/2017 9:35 AM EST Legal Sex Female 4:09 PM EST Gender Identity Female 09/22/2017 9:35 AM EST Sexual Orientation Choose not to disclose 2022 11:46 AM EST Last Filed Vital Signs Vital Sign Reading Time Taken Comments Blood Pressure 148/94 06/29/2024 2:24 AM EDT Pulse 66 06/29/2024 2:24 AM EDT Temperature 36.6 C (97.9 F) 06/29/2024 12:05 AM EDT Respiratory Rate 16 06/29/2024 2:24 AM EDT Oxygen Saturation 100% 06/29/2024 2:24 AM EDT Inhaled Oxygen Concentration - - Weight 65.8 kg (145 lb) 05/28/2024 11:51 AM EDT Height 157.5 cm (5' 2 ) 05/28/2024 11:51 AM EDT Body Mass Index 26.52 05/28/2024 11:51 AM EDT Plan of Treatment Health Maintenance Due Date Last Done Comments DEPRESSION SCREENING 1977 COLOGUARD 2010 FIT TEST 2010 FOBT 2010 SIGMOIDOSCOPY 2010 VIRTUAL COLONOSCOPY 2010 PNEUMOCOCCAL VACCINES (50+ years) (1 of 1 - PCV) 2015 ZOSTER VACCINES (1 of 2) 2015 TSH LEVEL 11/29/2023 11/28/2022, 07/16, 06/28/2019, Additional history exists COVID-19 VACCINE ( season) 2024 PAP SMEAR 09/10/2024 09/10/2021, 07/17, 08/04/2018 INFLUENZA VACCINE (#1) 2025 06/26/2016, 2014 MAMMOGRAM 09/17/2025 09/17/2023, 08/16, 09/11/2021, Additional history exists SCREENING FOR DIABETES 11/28/2025 11/28/2022, 2022 COLONOSCOPY 12/27/2026 12/27/2016 COLORECTAL CANCER SCREENING 12/27/2026 LIPID PANEL 11/29/2027 11/28/2022, 11/13, 07/26/2020, Additional history exists Adult Td,Tdap Booster 08/10/2028 08/10/2018 RSV VACCINE (1 - 1-dose 75+ series) 02/29/2040 HEPATITIS C SCREENING Completed 06/28/2019, 018 HIV ONE-TIME SCREENING (18-65 YEARS) Completed 11/28/2022 SMOKING STATUS SCREENING (Once After 26 Yrs) Completed 06/29/2024 HEPATITIS A VACCINES Aged Out No long er eligible based on patient's age to complete this topic HIB VACCINES Aged Out No longer eligi ble based on patient's age to complete this topic MENINGOCOCCAL VACCINES (ACWY) Aged Out No longer eligible based on patient's age to complete this topic MENINGOCOCCAL VACCINES (B) Aged Out N o longer eligible based on patient's age to complete this topic Medical Devices Not on file Procedures Procedure Name Priority Date/Time Associated Diagnosis Comments BI MAMMOGRAM SCREENING WITH TOMOSYNTHESIS WITH CAD (BILATERAL) Routine 09/17/2023 11:11 AM EST Visit for screening mammogram LIPID PANEL Routine 11/28/2022 11:39 AM EDT Screening examination for venereal disease Routine general medical examination at a health care facility TSH Routine 11/28/2022 11:39 AM EDT Screening examination for venereal disease Routine general medical examination at a health care facility PAP TEST Routine 09/10/2021 12:00 AM EST HEPATITIS C ANTIBODY, QUALITATIVE Routine 06/28/2019 2:54 PM EDT Screen for STD (sexually transmitted disease) HM COLONOSCOPY FOR RESULT ENTRY ONLY Routine 12/27/2016 from Last 3 Months or Most Recently Relevant to Health Maintenance Results * BI MAMMOGRAM SCREENING WITH TOMOSYNTHESIS WITH CAD (BILATERAL) (09/17/2023 11:11 AM EST) Anatomical Region Laterality Modality Breast Left, Breast Right, Breast Bilateral Bila teral Mammography 09/23/2023 1:52 PM EST Impressions 09/23/2023 1:54 PM EST No mammographic evidence of malignancy in either breast. Annual screening mammography is recommended. BI-RADS CATEGORY: 1 - Negative. The patient will be notified of the results and recommendations. Narrative 09/23/2023 1:54 PM EST BI MAMMOGRAM SCREENING WITH TOMOSYNTHESIS WITH CAD (BILATERAL) Additional patient information: Screening. COMPARISON: Comparison is made with relevant prior imaging. Breast composition: There are scattered fibroglandular densities. FINDINGS: No abnormal masses, suspicious calcifications, or other significant findings are identified mammographically in either breast. Procedure Note Clare Rodriguez MD - 09/23/2023 BI MAMMOGRAM SCREENING WITH TOMOSYNTHESIS WITH CAD (BILATERAL) Additional patient information: Screening. COMPARISON: Comparison is made with relevant prior imaging. Breast composition: There are scattered fibroglandular densities. FINDINGS: No abnormal masses, suspicious calcifications, or other significantfindings are identified mammographically in either breast. IMPRESSION: No mammographic evidence of malignancy in either breast. Annual screening mammography is recommended. BI-RADS CATEGORY: 1 - Negative. The patient will be notified of the results and recommendations. us Tiago A Bigda DO IMG MG EXAMS Final Result * TSH (11/28/2022 11:39 AM EDT) TSH 1.39 0.27 - 4.20 uIU/mL [facility] Blood 11/28/2022 11:3 9 AM EDT 11/28/2022 11:44 AM EDT us Donna SYED LAB BLOOD ORDERABLES Final Result [facility] [address] [place] [address] * (ABNORMAL) Lipid panel (11/28/2022 11:39 AM EDT) HDL 51 mg/dL [facility] Comment: Interpretation <40 mg/dL: Low HDL cholesterol (major risk factor for CHD) Greater than or equal to 60 mg/dL: High HDL cholesterol ( negative risk factor for CHD) HDL - cholesterol is affected by a number of factors, e.g. smoking, excerise, hormones, sex and age. CHOLESTEROL 128 0 - 240 mg/dL [facility] TRIGLYCERIDES 107 30 - 160 mg/dL [facility] LDL 56 50 - 129 mg/dL [facility] Comment: LDL levels in terms of risk for coronary heart disease: <100 mg/dL: Optimal 100-129 mg/dL: Near or above optimal 130-159 mg/dL: Borderline high 160-189 mg/dL: High >190 mg/dL: Very High CARDIAC RISK RATIO 2.5(L) 3.3 - 4.4 C [facility] Blood 11/28/2022 11:3 9 AM EDT 11/28/2022 11:44 AM EDT Donna SYED LAB BLOOD ORDERABLES Final Result [address] [address] * Pap Smear (09/10/2021 12:00 AM EST) 09/10/2021 09/11/2021 8:3 9 AM EST Narrative SEE NARRATIVE - 09/17/2021 3:54 PM EST [address] [address] Wheel Buffer: Kathleen Damon MD ASSOCIATE MATERIAL HANDLER Cytology Report FINAL DIAGNOSIS A. PAP SMEAR (SUREPATH) CE: SPECIMEN ADEQUACY: Satisfactory for evaluation; transformation zone present. INTERPRETATION: NEGATIVE FOR INTRAEPITHELIAL LESION OR MALIGNANCY. Electronically Signed Out By: ROXANE Galarza(ASCP) The Pap test is a screening test primarily for squamous cancers and precursors and has associated false-negative and false-positive results. New technologies such as liquid-based preparations may decrease but will not eliminate all false-negative results. Regular sampling and follow-up of unexplained clinical signs and symptoms are recommended to minimize false negative results. PROCEDURES/ADDENDA HPV Testing (Requested) Ordered Date: 09/11/2021 A. PAP SMEAR (SUREPATH) CE: Human Papilloma Virus Test Negative for high-risk human papillomavirus types 16, 18, 45 and the Other high risk probe set (Includes 31, 33, 35, 39, 51, 52, 56, 58, 59, 66, 68) by [employer] On[employer]arity HR-HPV analysis. Clinical correlation is advised. This HPV test was performed at [facility] [place], [address] [place] [address]. This test has been FDA approved for SurePath cervical cytology specimens. The accuracy and precision of this test for all other specimen sources has been verified in the Cytopathology Laboratory of the [facility] [place] and has not been cleared or approved by the U.S. Food and Drug Administration. Clinical correlation is advised. CLINICAL HISTORY Date of Last Menstrual Period: Not Provided Menstrual History: Post Menopausal Other Clinical Conditions: Screening Pap SPECIMEN SOURCE A: PAP SMEAR (SUREPATH) CE Patient Name: HEATHER GARCIA : 1965 (Age: 56) Sex: F Institution: [facility] Location: [facility] Date of Collection: 09/10/2021 Date of Reported: 09/17/2021 15:54 Results to: Parish Norwood CNM us Parish Norwood CNM CYTOLOGY ORDERABLES Final Re sult SEE NARRATIVE * Hepatitis C antibody, qualitative (06/28/2019 2:54 PM EDT) HCV NON-REACTIV E NON-REACTI VE [facility] Blood 06/28/2019 2:54 PM EDT 06/28/2019 3:02 PM EDT us Fiordaliza Kern MD LAB BLOOD ORDERABLES Final Resul t Performing Organization Address City/[facility]/ZIP Co de Phone Number [address] [address] * COLONOSCOPY FOR RESULT ENTRY ONLY (12/27/2016) us Historical Provider HEALTH MAINTENANCE Final Result from Last 3 Months or Most Recently Relevant to Health Maintenance Insurance HMO HMO HMO HMO HMO HMO HMO HMO HMO Care Teams Geophysicist Relationship Specialty Start Date End Date DarciTiago bueno DO Sonny [email or web address] PCP - General Internal Medicine 08/11/20 Additional Source Comments The information contained in this document represents components of the legal health record. It is not the complete legal health record.[facility]
--- OUTSIDE RECORDS SUMMARY | 2025-05-20 15:31 | XMS_ITS | Encounter Summary ---
Author Organization [facility] Address [address] [place] [address] Phone Care Team Providers Care President [employer] Name Role Phone Tiago Lee DO Primary Care Provider [phone] Encounter Details Date Type Department Care Team (Late st Contact Info) Description 06/24/2024 Transcribe Orders Virtual Department [address] [place] [address] Tiago Lee DO [address] [facility] [place] [address] [place] [address] [email or web address] Breast screening (Primary Dx) Social History Tobacco [...] as of this encounter Visit Diagnoses Diagnosis Breast screening- Primary Breast screening, unspecified documented in this encounter Care Teams President [place] Relationship Specialty Start Date End Date Tiago Lee DO [email or web address] PCP - General Internal Medicine 08/11/20 documented as of this encounter Additional Source Comments The information contained in this document represents components of the legal health record. It is not the complete legal health record.[facility]
--- OUTSIDE RECORDS SUMMARY | 2025-05-20 15:31 | XMS_ITS | Encounter Summary ---
Author Organization [facility] Address [address] [place] [address] Phone Care Team Providers Care Playground Official Name Role Phone JesusTiago Primary Care Provider [phone] Tiago Lee DO Unavailable Reason for Referral * MRI/CAT Scan - Closed Specialty Diagnoses / Procedures Referred By Marquis pillai Referred To Contact Radiology Diagnoses Nonintractable headache, unspecified chronicity pattern, unspecified headache type Memory loss Procedures MRI Brain CHG MRI BRAIN Mervin Pritchard MD Phone: tel: fax: [email or web address] Referral ID Status Reason Start Date Expiration Date Visits Re quested Visits Authorized [id number] Closed 08/07/2022 10/06/2022 1 1 Encounter Details Date Type Department Care Team (Latest Contact Info) Description 08/07/2022 Transcribe Orders Virtual Department [address] [place], [place] [id number] Mervin Pritchard MD [address] [place] [address], [address] [place], [place] [id number] [email or web address] Nonintractable headache, unspecified chronicity pattern, unspecified headache type (Primary Dx); Memory loss Social History Tobacco Use Types Packs/Day Years [...] of this encounter Results * MRI BRAIN WITHOUT CONTRAST (09/14/2022 12:14 PM EST) Anatomical Region Laterality Modality Head Magnetic Resonan ce 09/14/2022 3:15 PM EST Impressions 09/15/2022 10:38 AM EST No intracranial cause for the reported symptoms identified. No evidence of a regional brain parenchymal volume loss pattern. Narrative 09/15/2022 10:38 AM EST MRI BRAIN WITHOUT CONTRAST TECHNIQUE: MRI BRAIN WITHOUT CONTRAST Multi-sequence, multi-planar MRI of the brain was performed without intravenous contrast. COMPARISON: None FINDINGS: Brain Parenchyma: There is minimal scattered T2/FLAIR hyperintensity in the periventricular and deep white matter which is nonspecific and can be seen in the setting of chronic small vessel disease. No evidence of acute infarct, mass lesion, or hemorrhage. No evidence of a residual brain parenchymal volume loss pattern. Ventricular System and Extra-Axial Spaces: Normal. No evidence of midline shift or hydrocephalus. Extracranial Structures: Arterial flow voids in the skull base are present. Procedure Note Jose Miranda MD - 09/15/2022 MRI BRAIN WITHOUT CONTRAST TECHNIQUE: MRI BRAIN WITHOUT CONTRAST Multi-sequence, multi-planar MRI of the brain was performed withoutintravenous contrast. COMPARISON: None FINDINGS: Brain Parenchyma: There is minimal scattered T2/FLAIR hyperintensity inthe periventricular and deep white matter which is nonspecific and can beseen in the setting of chronic small vessel disease. No evidence of acuteinfarct, mass lesion, or hemorrhage. No evidence of a residual brainparenchymal volume loss pattern. Ventricular System and Extra-Axial Spaces: Normal. No evidence of midlineshift or hydrocephalus. Extracranial Structures: Arterial flow voids in the skull base arepresent. IMPRESSION: No intracranial cause for the reported symptoms identified. No evidence ofa regional brain parenchymal volume loss pattern. Mervin Pritchard MD IMG MR HEAD/NECK Final Resul t documented in this encounter Visit Diagnoses Diagnosis Nonintractable headache, unspecified chronicity pattern, unspecified headache type- Primary Memory loss Nonintractable headache, unspecified chronicity pattern, unspecified headache type Memory loss documented in this encounter Care Teams Playground Official Relationship Specialty Start Date End Date Tiago Lee DO PCP - General Internal Medicine 08/11/20 Tiago Lee DO [address] [place] [address] Insurance Assigned Provider 12/28/22 02/01/23 documented as of this encounter Additional Source Comments The information contained in this document represents components of the legal health record. It is not the complete legal health record.[facility]
--- OUTSIDE RECORDS SUMMARY | 2025-05-20 15:31 | XMS_ITS | Encounter Summary ---
Author Organization [facility] Address [address] [place] [address] Phone Care Team Providers Care Aeronautical Project Engineer Name Role Phone Tiago Lee DO Primary Care Provider [phone] Tiago Lee DO Primary Care Provider [phone] Jesus, Tiago Dennis DO Unavailable Encounter Details Date Type Department Care Team (Late st Contact Info) Description 11/17/2018 Ancillary Orders Virtual Department [address] [place] [address] Tiago Lee, [address] [facility] [place] [address] [email or web address] Breast screening Social History Tobacco Use Types Packs/Day Years [...] MAMMOGRAM SCREENING WITH TOMOSYNTHESIS WITH CAD (BILATERAL) (03/03/2019 12:48 PM EDT) Anatomical Region Laterality Modality Breast Left, Breast Right, Breast Bilateral Bila teral Mammography 03/03/2019 2:04 PM EDT Impressions 03/03/2019 2:09 PM EDT No findings suspicious for malignancy are identified. In the absence of a worrisome palpable abnormality, annual screening mammography is recommended. BI-RADS CATEGORY: 1 - Negative. DENSITY: The breast tissue is heterogeneously dense, an appearance which lowers the sensitivity of mammography. POS [id number] Narrative 03/03/2019 2:09 PM EDT COMPARISON: 12/29/2012 through 02/12/2018 Bilateral 3-D tomosynthesis with 2-D reconstructions in the CC and MLO projection. Computer-aided detection system also utilized. No new mass, asymmetry, architectural distortion or suspicious calcifications have become apparent on either side. Procedure Note Mario Marquez MD - 03/03/2019 COMPARISON: 12/29/2012 through 02/12/2018 Bilateral 3-D tomosynthesis with 2-D reconstructions in the CC and MLOprojection. Computer-aided detection system also utilized. No new mass, asymmetry, architectural distortion or suspiciouscalcifications have become apparent on either side. IMPRESSION: No findings suspicious for malignancy are identified. In the absence of aworrisome palpable abnormality, annual screening mammography isrecommended. BI-RADS CATEGORY: 1 - Negative. DENSITY: The breast tissue is heterogeneously dense, an appearance whichlowers the sensitivity of mammography. POS [id number] Tiago Lee DO IMG MG EXAMS Final Result documented in this encounter Visit Diagnoses Diagnosis Breast screening Breast screening, unspecified Breast screening Breast screening, unspecified documented in this encounter Additional Health Concerns Infection Onset Date Last Indicated Resolved Time COVID-19 09/13/2021 09/13/2021 10/04/2021 1:22 AM EST documented as of this encounter Care Teams Aeronautical Project Engineer Relationship Specialty Start Date End Date Tiago Lee DO PCP - General 07/03/17 08/10/20 Tiago Lee DO [email or web address] PCP - General Internal Medicine 08/11/20 Tiago Lee DO [address] [place] [id number] Insurance Assigned Provider 12/28/22 02/01/23 documented as of this encounter Additional Source Comments The information contained in this document represents components of the legal health record. It is not the complete legal health record.[facility]
--- OUTSIDE RECORDS SUMMARY | 2025-05-20 15:32 | XMS_ITS | Encounter Summary ---
Author Organization [facility] Address [address] [place] [address] Phone Care Team Providers Care Elastic Attacher Zigzag Name Role Phone Tiago Lee DO Primary Care Provider [phone] Tiago Lee DO Primary Care Provider [phone] Jesus, Tiago Dennis DO Unavailable Encounter Details Date Type Department Care Team (Late st Contact Info) Description 12/07/2019 Ancillary Orders Virtual Department [address] [place] [address] Tiago Lee, [address] [facility] [place] [address] [email or web address] Breast screening Social History Tobacco Use Types [...] MAMMOGRAM SCREENING WITH TOMOSYNTHESIS WITH CAD (BILATERAL) (09/05/2020 3:47 PM EST) Anatomical Region Laterality Modality Breast Left, Breast Right, Breast Bilateral Bila teral Mammography 09/05/2020 4:08 PM EST Impressions 09/05/2020 4:10 PM EST No mammographic change indicative of malignancy. Routine screening is recommended. BI-RADS CATEGORY: 1 - Negative. DENSITY: There are scattered fibroglandular densities. Narrative 09/05/2020 4:10 PM EST Bilateral full-field digital screening mammography is obtained and read in conjunction with computer-aided detection. Tomosynthesis as well as 2-D C view imaging of both breasts in two planes also obtained. Comparison made to multiple prior, most recent March 03, 2019, and most remote January 03, 2014. No dominant mass, architectural distortion, worrisome asymmetry, or suspicious calcification is identified. No skin or nipple finding of concern is appreciated. Procedure Note Umer Clayton MD - 09/05/2020 Bilateral full-field digital screening mammography is obtained and read inconjunction with computer-aided detection. Tomosynthesis as well as 2-D Cview imaging of both breasts in two planes also obtained. Comparison madeto multiple prior, most recent March 03, 2019, and most remote December. No dominant mass, architectural distortion, worrisome asymmetry, orsuspicious calcification is identified. No skin or nipple finding ofconcern is appreciated. IMPRESSION: No mammographic change indicative of malignancy. Routine screening isrecommended. BI-RADS CATEGORY: 1 - Negative. DENSITY: [...] documented as of this encounter Care Teams Elastic Attacher Zigzag Relationship Specialty Start Date End Date Taigo Lee DO [email or web address] PCP - General 07/03/17 08/10/20 Tiago Lee DO PCP - General Internal Medicine 08/11/20 Tiago Lee DO [address] [place] [id number] [email or web address] Insurance Assigned Provider 12/28/22 02/01/23 documented as of this encounter Additional Source Comments The information contained in this document represents components of the legal health record. It is not the complete legal health record.[facility]
[2025-05-20 17:56] LABS: MANUAL DIFF FLAG NO
[2025-05-20 18:02] LABS: Hematocrit 40.2 % (37.0-47.0); Hemoglobin 13.2 g/dl (12.0-16.0); Imm Gran Abs Auto 0.01 X10*3/uL (0.00-0.03); Imm Gran Pct Auto 0.2 % (0.0-0.4); Lymphocytes Absolute Auto 1.5 X10*3/uL (1.2-4.9); Mean Corpuscular HGB Conc 32.8 g/dl (31.0-35.0); Mean Corpuscular Hemoglobin 29.3 pg (27.0-33.0); Mean Corpuscular Volume 89.1 fL (80.0-98.0); NRBC Abs Auto 0.000 X10*3/uL (0.0-0.012); NRBC Pct Auto 0.0 /100WBC (0.0-0.2); Platelet Count 226 X10*3/uL (160-400); Red Blood Count 4.51 X10*6/uL (4.20-5.50); White Blood Count 6.7 X10*3/uL (4.8-10.8)
[2025-05-20 18:34] LABS: Alanine Aminotransferase 22 U/L (0-31); Albumin Level 4.3 g/dL (3.5-5.0); Alkaline Phosphatase 73 U/L (39-117); Anion Gap 12 (12-20); Aspartate Amino Transferase 22 U/L (5-31); Blood Urea Nitrogen 17 mg/dL (9-16); Calcium 8.9 mg/dL (8.4-10.2); Carbon Dioxide 28 mmol/L (22-29); Chloride 107 mmol/L (96-108); Estimated Glomerular Filt Rate > 60; Potassium 3.8 mmol/L (3.3-5.1); Sodium 143 mmol/L (135-145); Total Protein 7.1 g/dL (6.5-8.0)
[2025-05-20 18:50] LABS: Free T4 (Free Thyroxine) 1.17 ng/dL (0.71-1.85); Thyroid Stimulating Hormone 0.92 uIU/mL (0.32-4.0)
[2025-05-23 03:53] LABS: HIV Num 1 0.06 S/CO (0.00-0.99)
== END 2025-05-20 15:25 | disposition home or self-care (01) ==
LOC: HO.MANLDS 15:24
PROVIDERS: Visit Provider Physician Assistant
DX: Z11.4 Encounter for screening for human immunodeficiency virus [HIV] (principal); E03.8 Other specified hypothyroidism
CPT/HCPCS: 36415; 80053; 84439; 84443; 85025; 87389